=== PATIENT | female | born 1985 | race Two or more races ===

== ENCOUNTER 2017-06-09 17:18 | Emergency (ER) | payer SELFPAY ==
[2017-06-09 18:12] LABS: URINE HCG POC HCG NEGATIVE (Negative)
[2017-06-09 18:14] LABS: BILIRUBIN,URINE NEGATIVE (NEG); CLARITY,URINE CLOUDY; COLOR,URINE AMBER; GLUCOSE,URINE NEGATIVE (NEG); NITRITE,URINE NEGATIVE (NEG); PROTEIN,URINE 100 mg/dL (NEG-TRACE); UROBILINOGEN,URINE 0.2 mg/dL (0.2 mg/dL)
[2017-06-09 18:16] LABS: ADD MAN DIFF? NO
[2017-06-09] MEDS: IV NORMAL SALINE 1000ML BAG 1,000 ML IV (18:16)
[2017-06-09 18:18] LABS: BASO # 0.1 x10^3/uL (0.0-0.2); BASO % 1 % (0-3); EOS % 0 % (0-3); HEMATOCRIT 44.7 % (36.0-47.0); LYMPH # 1.6 x10^3/uL (1.0-4.8); LYMPH % 13 % (24-48); MEAN CORPUSCULAR HEMOGLOBIN 27 pg (25-35); MEAN CORPUSCULAR HGB CONC 33 g/dL (31-37); MEAN CORPUSCULAR VOLUME 80 fL (79-100); MONO # 0.9 x10^3/uL (0.0-1.1); MONO % 7 % (0-9); NEUT # 9.8 x10^3uL (1.8-7.7); NEUT % 80 % (31-73); PLATELET COUNT 306 x10^3/uL (140-400); WHITE BLOOD COUNT 12.3 x10^3/uL (4.0-11.0)
[2017-06-09] MEDS: ONDANSETRON PF 4 MG/2 ML VIAL. IV (18:22)
[2017-06-09 18:35] LABS: ALBUMIN 3.5 g/dL (3.4-5.0); ALBUMIN/GLOBULIN RATIO 0.6 (1.0-1.7); ALK PHOS 120 U/L (46-116); ALT (SGPT) 49 U/L (14-59); ANION GAP 11 (6-14); AST (SGOT) 20 U/L (15-37); BLOOD UREA NITROGEN 7 mg/dL (7-20); BUN/CREATININE RATIO 10 (6-20); CALCIUM 9.3 mg/dL (8.5-10.1); CARBON DIOXIDE 25 mmol/L (21-32); CHLORIDE 103 mmol/L (98-107); CREATININE 0.7 mg/dL (0.6-1.0); GFR 97.6; GLUCOSE 93 mg/dL (70-99); LIPASE 96 U/L (73-393); SODIUM 139 mmol/L (136-145); TOTAL BILIRUBIN 0.8 mg/dL (0.2-1.0); TOTAL PROTEIN 8.9 g/dL (6.4-8.2)
[2017-06-09 18:41] LABS: POTASSIUM 2.8 mmol/L (3.5-5.1)
[2017-06-09 18:44] LABS: BACTERIA,URINE MANY /HPF (0-FEW); SQUAMOUS EPITHELIAL CELL,UR MOD /LPF; YEAST,URINE PRESENT /HPF
[2017-06-09] MEDS: POTASSIUM CL 40MEQ IN 0.9%NACL 1,000 ML IV (19:14)
[2017-06-09] MEDS: POTASSIUM CHLORIDE 20 MEQ TABLET.ER. PO (19:15)
== END 2017-06-09 20:45 | disposition home or self-care (01) ==
LOC: ER 17:18
DX: E86.0 Dehydration (principal); E87.6 Hypokalemia; B34.9 Viral infection, unspecified; Z90.49 Acquired absence of other specified parts of digestive tract; Z90.6 Acquired absence of other parts of urinary tract
CPT/HCPCS: 36415; 80053; 81001; 81025; 83690; 85025; 87086; 96361; 96365; 96375; 99284-25; J2405; J3480; J7030